=== PATIENT | female | born 1960 | race Two or more races ===

== ENCOUNTER 2024-07-15 13:38 | Inpatient (IN) | payer MEDICARE, SELFPAY ==
[2024-07-15 13:57] VITALS: BP 126/70; PULSE 72; RESP 18; TEMP 36.8; O2SAT 96
[2024-07-15 14:51] VITALS: PULSE 70; RESP 16; O2SAT 96
--- NOTE | 2024-07-15 15:26 | HP.PCM_ITS ---
HPI - General General Date of Admission: 07/15/24 Date of Service: 07/15/24 Chief Complaint: Here for rehabilitation. HPI Narrative MISAEL MUÑOZ, is a 64 Female who presents with following: March 2024 Back surgery. June 2024 Right ankle surgery at [facility]. Rehab at [facility] following right ankle surgery. 07/11/2024 [facility] with abdominal pain, diarrhea. Diarrhea for 1.5 days, fever 100.7, on antibiotics after right ankle surgery. Right ankle pain controlled, low back doing well. status post Keflex, Bactrim after right ankle surgery. CT abdomen/pelvis showed nonspecific inflammation of small bowel. Enteric panel, C. diff, urine cultures, blood cultures. C. diff negative. Enteric panel + Norovirus, stop antibiotics. 07/12/2024 No acute events overnight. Abdominal pain better, diarrhea improving. Imodium PRN. Supportive treatment. 07/14/2024 Pre-CERT for SNF. 07/15/2024 Admit to TCU with debility, here for rehabilitation, strengthening, prior to discharge home alone. [facility] Medical History (Updated 07/15/24 @ 15:[address] Simon Jack MD) BPPV (benign paroxysmal positional vertigo) Essential (primary) hypertension Neuropathic pain Vitamin D deficiency Allergic rhinitis Headache Norovirus Abdominal pain Debility Injury of head and neck History of stress test Anemia Anxiety Depression Diabetes Former smoker Asthma Hypertension Migraines Home Medications ?Medication ?Instructions ?Recorded ?Last Taken ?Type amitriptyline 100 mg tablet 100 mg PO QHS mood 5 07/14/24 History aspirin 81 mg tablet,delayed 81 mg PO BID heart 07/15/24 History release bupropion HCl 300 mg 24 hr tablet, 300 mg PO DAILY moo d 07/15/24 07/15/24 History extended release cholecalciferol (vitamin D3) 50 50 mcg PO DAILY supple ment 07/15/24 Unknown History mcg (2,000 unit) capsule gabapentin 300 mg capsule 300 mg PO BID nerv pain /12/3007/15/24 History lisinopril 2.5 mg tablet 2.5 mg PO DAILY blood pressu re 07/15/24 07/15/24 History metoprolol tartrate 25 mg tablet 12.5 mg PO BID heart 07/15/24 07/15/24 History semaglutide 1 mg/dose (4 mg/3 mL) 1 mg subcut QWEEK we ightloss 07/15/24 Unknown History subcutaneous pen injector (Ozempic) Allergy/AdvReac Type Severity Reaction Status Date / Time eucalyptus Allergy Unknown Shortness Verified 07/15/24 15:06 of breath raspberry Allergy Unknown Other Verified 07/15/24 14:35 amoxicillin (From Augmentin) Allergy severe Verified 07/15/24 14:35 stomach pain clavulanic acid (From Allergy severe Verified 07/15/24 14:35 Augmentin) stomach pain morphine AdvReac Unknown Other Verified 07/15/24 14:35 Family History (Updated 07/15/24 @ 15:[address] Simon Jack MD) Mother Myocardial infarction Cervical cancer Blood clot in vein Father Heart disease Bladder cancer Hx of CABG Neuropathy Uterine cancer Parkinson disease Depression Lymphoma Skin cancer Surgical History (Updated 07/15/24 @ 15:[address] Simon Jack MD) History of esophagogastroduodenoscopy (EGD) History of lumbar laminectomy History of lumbosacral spine surgery History of bilateral cataract extraction History of colonoscopy History of cervical spinal surgery History of ankle surgery History of appendectomy Social History (Updated 07/15/24 @ 15:[address] Simon Jack MD) household members: none and other details: 2 cats. Smoking Status: Former smoker alcohol intake: current alcohol intake frequency: a few times a month substance use type: does not use ROS Constitutional Constitutional: Reports weakness; Denies chills, fever(s) or weight gain ENT HEENT: Denies headache(s), nasal congestion or nasal discharge Cardiovascular Cardiovascular: Denies chest pain or palpitations Respiratory/Chest Respiratory/Chest: Denies cough, excessive phlegm production or shortness of breath with exertion Gastrointestinal Gastrointestinal: Denies abdominal pain, nausea or vomiting Genitourinary Genitourinary: Denies dysuria Musculoskeletal Musculoskeletal: Denies joint pain or joint swelling Integumentary Integumentary: Denies rash or wounds Neurologic Neurologic: Denies focal weakness, numbness or tingling Psychiatric Psychiatric: Denies anxiety, auditory hallucinations, depression, homicidal ideation or suicidal ideation Vital Signs Vital Signs Vital Signs: 07/15/24 13:57 07/15/24 14:25 07/15/24 14:51 Temperature 98.2 F Temperature Source Temporal Pulse Rate 72 70 Pulse Rhythm Regular Pulse Strength Normal (2+) Normal (2+) Respiratory Rate 18 16 Respiratory Effort Normal Non-Labored Respiratory Depth Normal Respiratory Pattern Normal Blood Pressure 126/70 H Blood Pressure Mean 88 Blood Pressure Source Monitor Blood Pressure Position Semi-Fowlers Blood Pressure Location Left Arm Pulse Ox 96 96 Oxygen Delivery Method Room Air Room Air Physical Exam Const alert General Appearance: cooperative HEENT normocephalic Eyes PERRL and EOMs intact bilaterally Neck supple, no JVD and no carotid bruits Resp normal respiratory effort, normal air movement and clear to auscultation bilaterally Cardio regular rate and regular rhythm GI normal to inspection, nondistended, normoactive bowel sounds, non-tender and non-distended Extremity normal capillary refill Extremity Narrative: Right lower extremity MARK. General Extremity: Negative for edema Skin no rashes or lesions noted General Skin Exam: no breakdown Psych affect normal Appearance: appropriate Assessment & Plan Assessment/Plan (1) Debility: (2) Abdominal pain: (3) Norovirus: (4) Headache: (5) Depression: (6) Allergic rhinitis: (7) Vitamin D deficiency: (8) Neuropathic pain: (9) Essential (primary) hypertension: (10) BPPV (benign paroxysmal positional vertigo): (11) Diabetes: PLAN: Plan 64 year old female with below past medical history of recent cervical/lumbar spine surgery, recent right ankle surgery, hospitalized for diarrhea 2/2 norovirus, admitted to TCU with debility, here for rehabilitation, strengthening, prior to discharge home alone. * Debility - PT/OT. * Pain - Tylenol 1000mg q6 prn pain (1-10). * Bowel - senna/colace 1 tablet bid, Magnesium citrate 300mL daily prn. * Adult immunization - Administer pneumonia vaccine, covid vaccine, flu vaccine as appropriate. * DVT prophylaxis - Aspirin 81mg bid. * Headache - Elavil 100mg qhs, stable chronic termite inspector use, GDR not recommended. * Depression - Wellbutrin XL 300mg daily, stable chronic alf use, GDR not recommended. * Vitamin D deficiency - D3 50mcg daily. * Neuropathic pain - Gabapentin 300mg bid. * Hypertension - Metoprolol 12.5mg bid, Lisinopril 2.5mg daily.
[2024-07-15] MEDS: Aspirin E.C. 81 MG Tablet PO (17:25)
[2024-07-15] MEDS: Amitriptyline 100 MG Tablet PO (17:27)
--- NOTE | 2024-07-15 17:33 | NURSING ---
pt had this nurse change time of Elavil to before meals instead of HS per home regimen.
--- NOTE | 2024-07-15 17:37 | NURSING ---
pt requesting that mag citrate be given in morning instead of tonight. will update next shift
[2024-07-15] MEDS: Gabapentin 300 MG Capsule PO (23:10)
[2024-07-15] MEDS: Senna/Docusate Sodium 1 Tablet PO (23:10)
[2024-07-15 23:12] VITALS: BP 144/67; PULSE 78
[2024-07-15] MEDS: Metoprolol Tartrate 25 MG Tablet 12.5 MG PO (23:12)
[2024-07-16] MEDS: 0.9% Saline Lock 10 ML Syringe IV ×3 (06:08→21:52)
[2024-07-16 06:19] LABS: Bedside Glucose 99 mg/dL (74-106)
[2024-07-16 06:45] LABS: Absolute Lymphocyte Count 1.34 X10^3/uL (0.83-4.51); Absolute Neutrophil Count 1.5 X10^3/uL (2.0-7.7); Basophil# 0.01 X10^3/uL; Basophil% 0.3 % (0-1); Eosinophil# 0.08 X10^3/uL; Eosinophils% 2.5 % (0-5); Hematocrit 29.7 % (37-47); Hemoglobin 9.8 g/dL (12.0-15.0); Lymphocyte # 1.34 X10^3/ul (0.83-4.51); Lymphocyte % 42.7 % (19-41); Mean Corpuscular Hgb 29.1 pg (27.0-32.0); Mean Corpuscular Volume 88.1 fL (81-99); Mean Platelet Vol. 8.5 fl (6.2-12.0); Monocyte# 0.22 X10^3/uL; NRBC Flagged by Analyzer 0 % (0-5); Neutrophil # 1.47 X10^3/uL (2.7-7.7); Neutrophil % 46.9 % (47-70); Platelet Count 172 K/mm3 (150-450); RBC Distribution Width CV 12.7 % (11.6-14.6); RBC Distribution Width SD 40.6 fl (35.1-43.9); Red Blood Count 3.37 M/mm3 (4.2-5.4); White Blood Count 3.1 K/mm3 (4.4-11.0)
[2024-07-16 07:22] LABS: Anion Gap 6 (5-15); BUN 7 mg/dL (7-18); BUN/Creat Ratio 9.1 RATIO (10-20); Calcium,Total 8.9 mg/dL (8.5-10.1); Chloride 112 mmol/L (98-107); Creatinine, Serum 0.77 mg/dL (0.55-1.02); EST Glomerular Filtration Rate 80 mL/min (>60); Est Glom Filt Rate - Afr Amer 96 mL/min (>60); Glucose 112 mg/dL (74-106); Potassium 3.6 mmol/L (3.5-5.1); Sodium Level 142 mmol/L (136-145)
[2024-07-16 08:39] VITALS: BMI 44.6
[2024-07-16] MEDS: Gabapentin 300 MG Capsule PO ×2 (09:26→21:52)
[2024-07-16] MEDS: Aspirin E.C. 81 MG Tablet PO ×2 (09:26→16:36)
[2024-07-16] MEDS: Cholecalciferol (VIT D3) 25 MCG TABLET (1,000 UNITS) 50 MCG PO (09:26)
[2024-07-16] MEDS: Magnesium Citrate 300 ML PO (09:27)
[2024-07-16] MEDS: Lisinopril 2.5 MG Tablet PO (09:27)
[2024-07-16] MEDS: buPROPion (XL) 300 MG TABLET.XL PO (09:27)
[2024-07-16] MEDS: Senna/Docusate Sodium 1 Tablet PO ×2 (09:27→21:51)
[2024-07-16 09:29] VITALS: PULSE 75
[2024-07-16] MEDS: Metoprolol Tartrate 25 MG Tablet 12.5 MG PO ×2 (09:29→21:50)
[2024-07-16] MEDS: Tuberculin,Purif.prot.deriv. 50 TU/ML Vial 0.1 ML ID (09:29)
[2024-07-16 12:19] VITALS: BP 131/67; PULSE 75; RESP 12; TEMP 36.6; O2SAT 96
[2024-07-16] MEDS: Amitriptyline 100 MG Tablet PO (16:36)
[2024-07-16 20:00] VITALS: PULSE 74; O2SAT 96
[2024-07-16 21:49] VITALS: BP 129/65; PULSE 75
[2024-07-16 21:50] VITALS: BP 129/65; PULSE 75
--- NOTE | 2024-07-16 23:21 | NURSING ---
All care provided in room due to contact isolation precautions.
[2024-07-17 06:27] LABS: Bedside Glucose 124 mg/dL (74-106)
[2024-07-17 09:24] VITALS: PULSE 68
[2024-07-17] MEDS: Metoprolol Tartrate 25 MG Tablet 12.5 MG PO ×2 (09:24→20:16)
[2024-07-17] MEDS: Senna/Docusate Sodium 1 Tablet PO ×2 (09:24→20:16)
[2024-07-17] MEDS: Gabapentin 300 MG Capsule PO ×2 (09:24→20:18)
[2024-07-17] MEDS: buPROPion (XL) 300 MG TABLET.XL PO (09:24)
[2024-07-17] MEDS: Lisinopril 2.5 MG Tablet PO (09:24)
[2024-07-17] MEDS: Cholecalciferol (VIT D3) 25 MCG TABLET (1,000 UNITS) 50 MCG PO (09:25)
[2024-07-17] MEDS: Aspirin E.C. 81 MG Tablet PO ×2 (09:25→17:46)
[2024-07-17] MEDS: 0.9% Saline Lock 10 ML Syringe IV (09:25)
[2024-07-17 09:40] VITALS: BP 134/60; PULSE 79; RESP 16; TEMP 36.2; O2SAT 96
--- NOTE | 2024-07-17 14:26 | NURSING ---
pt remains in special contact precautions for all care/treatments/therapy
[2024-07-17 16:34] VITALS: RESP 16
[2024-07-17] MEDS: Amitriptyline 100 MG Tablet PO (17:46)
[2024-07-17 20:16] VITALS: BP 128/68; PULSE 79
[2024-07-18 06:14] LABS: Bedside Glucose 116 mg/dL (74-106)
[2024-07-18] MEDS: Aspirin E.C. 81 MG Tablet PO ×2 (08:14→17:14)
[2024-07-18] MEDS: Cholecalciferol (VIT D3) 25 MCG TABLET (1,000 UNITS) 50 MCG PO (08:14)
[2024-07-18] MEDS: Gabapentin 300 MG Capsule PO ×2 (08:14→21:01)
[2024-07-18] MEDS: buPROPion (XL) 300 MG TABLET.XL PO (08:14)
[2024-07-18] MEDS: 0.9% Saline Lock 10 ML Syringe IV (08:16)
--- NOTE | 2024-07-18 08:58 | NURSING ---
Offered covid vaccine, VIS provided. Resident declines at this time.
--- NOTE | 2024-07-18 10:17 | NURSING ---
Addendum entered by Melanie Chery 07/18/24 14:31: Spoke with therapy after their session. They made resident a gypsy lift for transfers and [facility]. Updated resident and let her know this RN would set it up for her. [phone]. Form faxed to physicians. Original Note: Discussed ortho follow-up appt with resident scheduled for 07/20/24. She became upset and tearful when discussed that WC transport cost would have to be covered by her. She said she'd been told the facility would get me to my appt. She reports that she doesn't have anyone to transport her, and all her friends have large SUVs. Provided supportive listening. Offered to see if physician would be wiling to do televisit and let xrays be done here. She became tearful again and said she needs to see her surgeon in person. Gave her the number to [facility] and told her this RN would discuss with therapy to see what they recommend after working with her. Asked if there was anything else this RN could do. She asked for a notepad which RN provided for her. She was in agreement with plan, thanked RN and said she was going to reach out to [facility] at this time.
[2024-07-18 11:07] VITALS: BP 118/65; PULSE 73; RESP 16; TEMP 36.2; O2SAT 95
--- NOTE | 2024-07-18 11:08 | NURSING ---
Patients blood pressure reading this morning noted, 118/65. Patient refused Lisinopril and Metoprolol. Stated she did not want her BP to drop any lower. Also refused Senna.
--- NOTE | 2024-07-18 11:36 | NURSING ---
Planning Rn Note; Activity Asset: Sylvie Ramires is independent in her choice of daily activities. She was admitted on isolation and will do independent activities in her room at this time. She has her smartphone, tablet and will watch tv or read as well. When off isolation staff will encourage social activities, remind her of group activities and respect her right to say no.
--- NOTE | 2024-07-18 11:45 | CASEMGMT ---
Social Work SW met with patient to complete initial assessment. Introduced self and role. SW obtained contacts and updated in chart. Pt stated her friend Aura Sexton is HCPOA but unable to provide copies of advanced directives. SW confirmed code status as full code. SW educated to [facility] insurance with NRD 07/21 and continued stay is not guaranteed with each review. Pt anxious with this information. Pt is NWB for 6 weeks. See SW assessment for barriers. SW provided active listening and offered ongoing support throughout stay. SW to assist with DC planning. Vicky Levy GREEN HOUSE MANAGER RETAIL FINANCIAL ANALYST
--- NOTE | 2024-07-18 14:06 | PCM.PN.DRR ---
Documented by User: Manjula Lopes 07/18/24 14:18 TCU RX Drug Regimen Review Subjective/Objective Subjective/Objective Subjective: TCU Admission. 64 YOF presented to outside ER from facility with abdominal pain and diarrhea, recent cervical/lumbar spine surgery, recent right ankle surgery. Hospitalized for diarrhea 2/2 norovirus. Admitted to TCU with debility for strengthening and rehabilitation. Objective: Allergies eucalyptus Allergy (Unknown, Verified 07/15/24 15:06) Shortness of breath eucalyptus oil raspberry Allergy (Unknown, Verified 07/15/24 14:35) Other ashtma amoxicillin (From Augmentin) Allergy (Verified 07/15/24 14:35) severe stomach pain clavulanic acid (From Augmentin) Allergy (Verified 07/15/24 14:35) severe stomach pain morphine Adverse Reaction (Unknown, Verified 07/15/24 14:35) Other doesn't work Current Medications Generic Name Dose Route Start Last Admin Trade Name Freq PRN Reason Stop Dose Admin Acetaminophen 1,000 mg 07/15/24 15:49 Acetaminophen 500 Mg Tablet PO Q6H PRN PRN Pain Score 1-10 Amitriptyline HCl 100 mg 07/16/24 17:00 07/17/24 17:46 Amitriptyline 100 Mg Tablet PO 100 mg 1700 DALLIN Administration Aspirin 81 mg 07/15/24 17:00 07/18/24 08:14 Aspirin E.C. 81 Mg Tablet PO 81 mg BIDCM DALLIN Administration Bupropion HCl 300 mg 07/16/24 10:00 07/18/24 08:14 Bupropion (Xl) 300 Mg Tablet.Xl PO 300 mg DAILY DALLIN Administration Cholecalciferol 50 mcg 07/16/24 08:00 07/18/24 08:14 Cholecalciferol (Vit D3) 25 Mcg Tablet (1,000 Units) PO 50 mcg DAILYCM DALLIN Administration Gabapentin 300 mg 07/15/24 22:00 07/18/24 08:14 Gabapentin 300 Mg Capsule PO 300 mg BID DALLIN Administration Lisinopril 2.5 mg 07/16/24 10:00 07/18/24 08:15 Lisinopril 2.5 Mg Tablet PO Not Given DAILY DALLIN Protocol Magnesium Citrate 300 ml 07/15/24 15:49 Magnesium Citrate 300 Ml PO DAILY PRN Constipation Metoprolol Tartrate 12.5 mg 07/15/24 22:00 07/18/24 08:14 Metoprolol Tartrate 25 Mg Tablet PO Not Given BID [facility] Protocol Senna/Docusate Sodium 1 tablet 07/15/24 22:00 07/18/24 08:15 Senna/Docusate Sodium 1 Tablet PO Not Given BID [facility] Sodium Chloride 10 - 40 ml 07/15/24 14:16 07/18/24 08:16 0.9% Saline Lock 10 Ml Syringe IV 10 ml UD PRN Administration SALINE FLUSH Tuberculin PPD 0.1 ml 07/23/24 10:00 Tuberculin,Purif.Prot.Deriv. 50 Tu/Ml Vial ID 07/23/24 10:01 X1 ONE Problem List Diabetes (Acute) BPPV (benign paroxysmal positional vertigo) (Acute) Essential (primary) hypertension (Acute) Neuropathic pain (Acute) Vitamin D deficiency (Acute) Allergic rhinitis (Acute) Depression (Acute) Headache (Acute) Norovirus (Acute) Abdominal pain (Acute) Debility (Acute) Vital Signs Temp Pulse Resp BP Pulse Ox O2 Del Method 97.2 F L 73 16 118/65 95 Room Air 07/18/24 11:07 07/18/24 11:07 07/18/24 11:07 07/18/24 11:07 07/18/24 11:07 07/18/24 11:07 Oxygen Delivery Method Room Air Weight: 110.132 kg Body Mass Index (BMI) 44.6 Sodium 142 mmol/L (136-145) 07/16/24 06:21 Potassium 3.6 mmol/L (3.5-5.1) 07/16/24 06:21 Chloride 112 mmol/L (98-107) H 07/16/24 06:21 Carbon Dioxide 25.0 mmol/L (21.0-32.0) 07/16/24 06:21 Anion Gap 6 (5-15) 07/16/24 06:21 BUN 7 mg/dL (7-18) 07/16/24 06:21 Creatinine 0.77 mg/dL (0.55-1.02) 07/16/24 06:21 Est GFR (MDRD) Af Amer 96 mL/min (>60) 07/16/24 06:21 Est GFR (MDRD) Non-Af 80 mL/min (>60) 07/16/24 06:21 BUN/Creatinine Ratio 9.1 RATIO (10-20) L 07/16/24 06:21 Glucose 112 mg/dL (74-106) H 07/16/24 06:21 Assessment/Plan: 1. Pain: acetaminophen 1000mg PO Q6H PRN pain 1-10. No PRN doses given. Please continue to monitor for pain and PRN usage. 2. Bowel: senna/docusate 1T PO BID and magnesium citrate 300mL PO daily PRN constipation. Resident has had 1 dose of magnesium citrate. Last documented bowel movement was 07/17. Please continue to monitor for PRN usage and constipation. 3. DVT prophylaxis: aspirin 81mg PO BIDCM. Please consider adding a stop date if clinically appropriate. Thanks. Please continue to monitor for S/S of bleeding/DVT and hemoglobin (last 9.8g/dL). 4. Hypertension: metoprolol tartrate 12.5mg PO BID and lisinopril 2.5mg PO daily. Please continue to monitor BP (last 118/65), HR (last 73), potassium (last 3.6mmol/L), SCr, cough. 5. Vitamin D deficiency: cholecalciferol 50mcg PO daily. Please consider ordering a vitamin D level as there is no level in the chart. Thanks. Assessment/Plan for indications treated with psychotropic medications: 1. Headache: amitriptyline 100mg PO QHS. Please see physician note regarding GDR. Please continue to monitor for headaches, anticholinergic side effects (BEERs), dementia/delirium (BEERs) and sodium (last 142mmol/L). 2. Depression: bupropion XL 300mf PO daily. Please see physician note regarding GDR. Please continue to monitor for suicidal ideation (black box warning). 3. Neuropathic pain: gabapentin 300mg PO BID. GDR not appropriate as this medication is being used for neuropathy. Please continue to monitor renal function, confusion. Medical chart and medication regimen reviewed. The following medication irregularities or issues were identified: 1. Aspirin 81mg PO BIDCM. Please consider adding a stop date if clinically appropriate. Thanks. 2. Cholecalciferol 50mcg PO daily. Please consider ordering a vitamin D level as there is no level in the chart. Thanks. Date Date of Note: 07/18/24 Documented by User: Dr. Simon Jack MD 07/18/24 15:54 TCU RX Drug Regimen Review Provider Comments Provider responsibility Provider Comments to Recommendations by Pharmacy Agree
[2024-07-18] MEDS: Amitriptyline 100 MG Tablet PO (17:14)
[2024-07-18] MEDS: Senna/Docusate Sodium 1 Tablet PO (21:01)
[2024-07-18 21:02] VITALS: BP 144/72; PULSE 81
[2024-07-18] MEDS: Metoprolol Tartrate 25 MG Tablet 12.5 MG PO (21:02)
[2024-07-18 22:00] VITALS: RESP 16
[2024-07-19 04:19] VITALS: PULSE 67; RESP 18; O2SAT 95
[2024-07-19 06:30] LABS: Bedside Glucose 127 mg/dL (74-106)
[2024-07-19] MEDS: Acetaminophen 500 MG Tablet 1000 MG PO (08:02)
[2024-07-19] MEDS: Cholecalciferol (VIT D3) 25 MCG TABLET (1,000 UNITS) 50 MCG PO (08:05)
[2024-07-19] MEDS: Aspirin E.C. 81 MG Tablet PO ×2 (08:05→17:21)
[2024-07-19 08:06] VITALS: BP 151/73; PULSE 77
[2024-07-19] MEDS: Metoprolol Tartrate 25 MG Tablet 12.5 MG PO (08:06)
[2024-07-19] MEDS: buPROPion (XL) 300 MG TABLET.XL PO (08:07)
[2024-07-19] MEDS: Senna/Docusate Sodium 1 Tablet PO ×2 (08:07→21:27)
[2024-07-19] MEDS: Lisinopril 2.5 MG Tablet PO (08:07)
[2024-07-19 08:11] VITALS: BP 151/73; PULSE 77; RESP 18; O2SAT 95
[2024-07-19] MEDS: Gabapentin 300 MG Capsule PO ×2 (10:47→21:27)
[2024-07-19 15:54] VITALS: TEMP 36.4
--- NOTE | 2024-07-19 15:57 | CHAPLAIN ---
Type of Pastoral Visit _x__ Initial Visit ___ Follow-up Visit ___ On-call Visit ___ General Patient Visit ___ Spiritual Assessment ___ Family Conference ___ Bereavement ___ Rapid Response ___ Code Blue ___ Other (describe below) Pastoral Care Referral From _x__ Patient ___ Family ___ Nurse ___ Physician ___ Match Marker ___ Fire Supervisor ___ Other (describe below) Sacrament/Intervention _x__ Active listening ___ Anointing ___ Taoism ___ Bereavement ___ Communion _x__ Kelley exploration ___ ___ Life review _x__ Prayer ___ Reconciliation ___ Sacrament of Sick ___ Supportive presence ___ Wedding ___ Other (describe below) Pastoral Comments patient is welcoming and tells her story of physical, family, and spiritual life; pt has ideas about spirituality and shares some thoughts and stories; pt is thankful to be in TCU after after experience in another facility; pt welcomes a prayer
--- NOTE | 2024-07-19 16:05 | NURSING ---
UPDATED PT THAT A STAFF MEMBER TESTED POSITIVE FOR COVID. PT STATED THERE WAS KNOW ONE SHE WANTED THIS NURSE TO CALL.
[2024-07-19] MEDS: Amitriptyline 100 MG Tablet PO (17:21)
[2024-07-19] MEDS: MELATONIN 10 MG TABLET PO (21:27)
[2024-07-19 21:28] VITALS: BP 117/51; PULSE 73
[2024-07-20 07:03] LABS: Bedside Glucose 114 mg/dL (74-106)
[2024-07-20 08:22] VITALS: BP 128/65; PULSE 85
[2024-07-20] MEDS: Metoprolol Tartrate 25 MG Tablet 12.5 MG PO ×2 (08:22→22:15)
[2024-07-20] MEDS: Cholecalciferol (VIT D3) 25 MCG TABLET (1,000 UNITS) 50 MCG PO (08:22)
[2024-07-20] MEDS: Aspirin E.C. 81 MG Tablet PO ×2 (08:22→16:17)
[2024-07-20] MEDS: buPROPion (XL) 300 MG TABLET.XL PO (08:23)
[2024-07-20] MEDS: Senna/Docusate Sodium 1 Tablet PO ×2 (08:23→22:15)
[2024-07-20] MEDS: Lisinopril 2.5 MG Tablet PO (08:24)
[2024-07-20] MEDS: Gabapentin 300 MG Capsule PO ×2 (08:27→22:15)
[2024-07-20] MEDS: Acetaminophen 500 MG Tablet 1000 MG PO (08:27)
[2024-07-20 08:32] VITALS: BP 128/65; PULSE 85; RESP 18; O2SAT 96
--- NOTE | 2024-07-20 08:33 | NURSING ---
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 WILL LEAVE NOT FOR . ALSO PT STATED SHE IS ALLERGIC TO RASPBERRIES AND THERE WERE SOME IN HER FRUIT CUP AT BREAKFAST. PT IS OK,NO SYSTEMS OF REACTION AT THIS TIME WILL CONTINUE TO MONITOR. RN AND DIETARY NOTIFIED.
--- NOTE | 2024-07-20 10:06 | NURSING ---
Addendum entered by Melanie Chery 07/20/24 12:31: Resident returned from appt at 1215. Note from appt says sutures were removed, operative leg able to be washed with soap and water. She can remove cast when at rest, but should have on for any transfers. To remain NWB to right foot. Next f/u appt on 08/03/24. Original Note: PT LEFT BY COT AT 0945 FOR APPOINTMENT IN [place].
--- NOTE | 2024-07-20 13:17 | CASEMGMT ---
Social Work IDT met with patient and her friend via conference for care plan meeting. Discussed patient's progress in PT/OT/SN. Educated to [facility] insurance with NRD 07/21 and continued stay is not guaranteed with each review. Pt returned from appt - stitches removed, remains NWB, f/u in 2 weeks for additional xrays. SW cautioned insurance may not continue to cover with NWBS. Inquired about the DC plan as pt is a gypsy lift. IDT is recommending SNF. Pt is adamant about returning home as she has not been home for several weeks. SW inquired if there were family or friends that could be available to assist pt at home. Pt expressed she can have people check in but everyone works full-time. Therapy will continue working with pt. SW will continue to follow for DC planning. Vicky Levy PRODUCTION ROUSTABOUT COMPUTER INFORMATION SYSTEMS INSTRUCTOR
--- NOTE | 2024-07-20 15:15 | NURSING ---
PT IS REFUSING TO LET STAFF GET HER WEIGHT. EDUCATED PT,PT STATED ITS MY RIGHT AND I DONT WANT WEIGHTED. STATED TO PT THAT IT IS AND IF SHE CHANGES HER MIND TO LET STAFF KNOW. PT STATED OK.
[2024-07-20 16:00] VITALS: TEMP 36.4
[2024-07-20] MEDS: Amitriptyline 100 MG Tablet PO (16:17)
--- NOTE | 2024-07-20 16:31 | NURSING ---
PT HAS NOT HAD A BM IN 3 DAYS. OFFERED PRUNE JUICE OR PRN MAG CITRATE. PT REFUSED AND STATED LETS WAIT TILL TOMORROW..
[2024-07-20] MEDS: Doxycycline 100 MG CAPSULE PO (17:25)
[2024-07-20 22:12] VITALS: BP 140/84; PULSE 75
[2024-07-20 22:15] VITALS: BP 140/84; PULSE 75
[2024-07-20] MEDS: MELATONIN 10 MG TABLET PO (22:15)
[2024-07-21 06:17] LABS: Bedside Glucose 106 mg/dL (74-106)
[2024-07-21 08:37] VITALS: BP 129/59; PULSE 80
[2024-07-21] MEDS: Cholecalciferol (VIT D3) 25 MCG TABLET (1,000 UNITS) 50 MCG PO (08:37)
[2024-07-21] MEDS: Metoprolol Tartrate 25 MG Tablet 12.5 MG PO ×2 (08:37→22:50)
[2024-07-21] MEDS: Aspirin E.C. 81 MG Tablet PO ×2 (08:37→17:20)
[2024-07-21] MEDS: Doxycycline 100 MG CAPSULE PO (08:37)
[2024-07-21] MEDS: buPROPion (XL) 300 MG TABLET.XL PO (08:39)
[2024-07-21] MEDS: Senna/Docusate Sodium 1 Tablet PO ×2 (08:39→22:50)
[2024-07-21] MEDS: Lisinopril 2.5 MG Tablet PO (08:40)
[2024-07-21] MEDS: Gabapentin 300 MG Capsule PO ×2 (08:52→22:50)
[2024-07-21] MEDS: Acetaminophen 500 MG Tablet 1000 MG PO (08:52)
[2024-07-21 08:56] VITALS: BP 129/59; PULSE 80; RESP 18; O2SAT 97
--- NOTE | 2024-07-21 11:13 | NURSING ---
PT STILL REFUSING MAG CITRATE. NO BM IN 4 DAYS. PT STATED I WILL TAKE IT TOMORROW MORNING,SOME TIMES I DONT GO FOR A WEEK AND THATS NORMAL FOR ME. WILL LET NEXT SHIFT KNOW.
--- NOTE | 2024-07-21 13:42 | MDS.RN ---
MDS pain interview complete.
[2024-07-21] MEDS: CARBOXYMETHYLCELLULOSE SODIUM 1 DRP DROPS 2 DRP OPHTHALMIC ×2 (14:58→15:00)
--- NOTE | 2024-07-21 15:57 | CASEMGMT ---
Social Work SW updated pt that insurance approved with NRD 07/27 and needs to see improvement or a NOMNC will be issued. Pt expressed understanding. Vicky Levy DEFENSIVE DRIVING INSTRUCTOR AIRFREIGHT OPERATIONS AGENT
[2024-07-21 16:00] VITALS: TEMP 36.8
[2024-07-21] MEDS: Amitriptyline 100 MG Tablet PO (17:20)
[2024-07-21 22:50] VITALS: BP 122/61; PULSE 78
[2024-07-21] MEDS: MELATONIN 10 MG TABLET PO (22:50)
[2024-07-22 06:12] LABS: Bedside Glucose 94 mg/dL (74-106)
[2024-07-22 07:03] LABS: Absolute Lymphocyte Count 1.49 X10^3/uL (0.83-4.51); Absolute Neutrophil Count 2.1 X10^3/uL (2.0-7.7); Basophil# 0.02 X10^3/uL; Basophil% 0.5 % (0-1); Eosinophil# 0.08 X10^3/uL; Hematocrit 32.8 % (37-47); Hemoglobin 10.9 g/dL (12.0-15.0); Lymphocyte # 1.49 X10^3/ul (0.83-4.51); Lymphocyte % 37.2 % (19-41); Mean Corp Hgb Conc 33.2 g/dL (32-36); Mean Corpuscular Hgb 29.5 pg (27.0-32.0); Mean Corpuscular Volume 88.9 fL (81-99); Mean Platelet Vol. 8.4 fl (6.2-12.0); Monocyte% 7.5 % (0-10); NRBC Flagged by Analyzer 0 % (0-5); Neutrophil # 2.11 X10^3/uL (2.7-7.7); Neutrophil % 52.6 % (47-70); Platelet Count 154 K/mm3 (150-450); RBC Distribution Width SD 42.5 fl (35.1-43.9); Red Blood Count 3.69 M/mm3 (4.2-5.4)
[2024-07-22 07:38] LABS: Anion Gap 5 (5-15); BUN 16 mg/dL (7-18); BUN/Creat Ratio 16.2 RATIO (10-20); Calcium,Total 9.6 mg/dL (8.5-10.1); Chloride 108 mmol/L (98-107); Creatinine, Serum 0.99 mg/dL (0.55-1.02); EST Glomerular Filtration Rate 60 mL/min (>60); Est Glom Filt Rate - Afr Amer 72 mL/min (>60); Estimated Creatinine Clearance 62.58 ml/min; Glucose 108 mg/dL (74-106); Potassium 4.2 mmol/L (3.5-5.1); Sodium Level 139 mmol/L (136-145)
[2024-07-22] MEDS: Senna/Docusate Sodium 1 Tablet PO ×2 (08:37→22:31)
[2024-07-22] MEDS: Aspirin E.C. 81 MG Tablet PO ×2 (08:38→16:54)
[2024-07-22] MEDS: Doxycycline 100 MG CAPSULE PO (08:38)
[2024-07-22] MEDS: Gabapentin 300 MG Capsule PO ×2 (08:38→22:34)
[2024-07-22] MEDS: buPROPion (XL) 300 MG TABLET.XL PO (08:38)
[2024-07-22] MEDS: Cholecalciferol (VIT D3) 25 MCG TABLET (1,000 UNITS) 50 MCG PO (08:38)
[2024-07-22 09:00] VITALS: BP 113/65; PULSE 70; RESP 16; TEMP 36.8; O2SAT 95
--- NOTE | 2024-07-22 09:01 | NURSING ---
Dining Car Hop Note; MDS for 07/22/2024 Complete
--- NOTE | 2024-07-22 16:02 | CASEMGMT ---
Social Work SW completed BIMS () and PHQ-9 (04/03) for MDS assessment. SW provided ongoing supportive listening and emotional support. Pt shared several stories relating to her personal life, explaining positive responses. SW answered yes to having thoughts of being better off , but no to thoughts of hurting yourself in some way. SW explored answer further. Pt explained she has no wishes to harm herself, specifically stating killing yourself is weak. Pt has not had past or present intent/attempts/plans/thoughts of suicide. Pt shared she has thoughts of being better off citing when things get hard and is done. SW explored pt's interpretation of done. Pt reiterated no thoughts of suicide, but being done with the conversation, with confronting the situation or act, and taking time to step away from that moment to express her feelings. SW explored coping mechanisms. Pt shared she emotionally eats or shops. Pt identified those as maladaptive coping mechanisms. Pt has chronic depression and has been active with counselors prior. Pt last saw her counselor in the beginning of June, attended about 5 sessions, however, expressed not connecting with the counselor or getting the feedback she prefers. SW discussed switching providers. Pt agreeable. SW to provide list of resources in pt's area and assist with scheduling, if pt wishes. SW revisited the benefit of finding a new counselor to assist in learning positive coping skills and mechanisms. Pt agrees and has awareness. SW offered ongoing supportive visits throughout stay. Vicky Levy REPAIR COIL WINDER TRACK BROOM OPERATOR
[2024-07-22] MEDS: Amitriptyline 100 MG Tablet PO (16:54)
[2024-07-22] MEDS: CARBOXYMETHYLCELLULOSE SODIUM 1 DRP DROPS 2 DRP OPHTHALMIC ×2 (16:54→22:32)
[2024-07-22 20:00] VITALS: PULSE 86; O2SAT 95
[2024-07-22 22:27] VITALS: BP 141/62; PULSE 85
[2024-07-22] MEDS: MELATONIN 10 MG TABLET PO (22:29)
[2024-07-22 22:30] VITALS: BP 141/62; PULSE 85
[2024-07-22] MEDS: Metoprolol Tartrate 25 MG Tablet 12.5 MG PO (22:30)
[2024-07-23 02:47] VITALS: PULSE 70; O2SAT 94
[2024-07-23 06:14] LABS: Bedside Glucose 110 mg/dL (74-106)
[2024-07-23 08:26] VITALS: BP 117/68; PULSE 89; RESP 18; TEMP 36.9; O2SAT 96
[2024-07-23] MEDS: Senna/Docusate Sodium 1 Tablet PO ×2 (09:44→22:24)
[2024-07-23] MEDS: CARBOXYMETHYLCELLULOSE SODIUM 1 DRP DROPS 2 DRP OPHTHALMIC (09:44)
[2024-07-23] MEDS: buPROPion (XL) 300 MG TABLET.XL PO (09:44)
[2024-07-23] MEDS: Aspirin E.C. 81 MG Tablet PO ×2 (09:44→17:29)
[2024-07-23] MEDS: Gabapentin 300 MG Capsule PO ×2 (09:44→22:22)
[2024-07-23] MEDS: Cholecalciferol (VIT D3) 25 MCG TABLET (1,000 UNITS) 50 MCG PO (09:46)
[2024-07-23] MEDS: Doxycycline 100 MG CAPSULE PO (09:46)
[2024-07-23] MEDS: Tuberculin,Purif.prot.deriv. 50 TU/ML Vial 0.1 ML ID (09:50)
[2024-07-23 16:00] VITALS: RESP 18
[2024-07-23] MEDS: Amitriptyline 100 MG Tablet PO (17:29)
[2024-07-23 22:21] VITALS: BP 127/64; PULSE 80
[2024-07-23] MEDS: MELATONIN 10 MG TABLET PO (22:23)
[2024-07-23 22:24] VITALS: PULSE 80
[2024-07-23] MEDS: Metoprolol Tartrate 25 MG Tablet 12.5 MG PO (22:24)
[2024-07-24 06:20] LABS: Bedside Glucose 113 mg/dL (74-106)
[2024-07-24] MEDS: Aspirin E.C. 81 MG Tablet PO ×2 (08:45→17:47)
[2024-07-24] MEDS: Cholecalciferol (VIT D3) 25 MCG TABLET (1,000 UNITS) 50 MCG PO (08:45)
[2024-07-24] MEDS: Gabapentin 300 MG Capsule PO ×2 (08:46→20:27)
[2024-07-24] MEDS: Doxycycline 100 MG CAPSULE PO (08:46)
[2024-07-24] MEDS: buPROPion (XL) 300 MG TABLET.XL PO (08:47)
[2024-07-24 08:52] VITALS: BP 120/62; PULSE 79
[2024-07-24] MEDS: Metoprolol Tartrate 25 MG Tablet 12.5 MG PO ×2 (08:52→20:27)
[2024-07-24] MEDS: Lisinopril 2.5 MG Tablet PO (08:54)
[2024-07-24 16:58] VITALS: BP 120/62; PULSE 79; RESP 16; TEMP 37.3; O2SAT 96
[2024-07-24] MEDS: Amitriptyline 100 MG Tablet PO (17:46)
[2024-07-24 20:27] VITALS: BP 135/67; PULSE 99
[2024-07-24] MEDS: Senna/Docusate Sodium 1 Tablet PO (20:27)
[2024-07-24] MEDS: MELATONIN 10 MG TABLET PO (20:28)
[2024-07-25 06:30] LABS: Bedside Glucose 112 mg/dL (74-106)
[2024-07-25] MEDS: Cholecalciferol (VIT D3) 25 MCG TABLET (1,000 UNITS) 50 MCG PO (09:18)
[2024-07-25] MEDS: Aspirin E.C. 81 MG Tablet PO ×2 (09:18→18:00)
[2024-07-25] MEDS: Doxycycline 100 MG CAPSULE PO (09:19)
[2024-07-25] MEDS: Gabapentin 300 MG Capsule PO ×2 (09:19→23:11)
[2024-07-25] MEDS: Lisinopril 2.5 MG Tablet PO (09:20)
[2024-07-25] MEDS: buPROPion (XL) 300 MG TABLET.XL PO (09:20)
[2024-07-25 09:21] VITALS: BP 116/63; PULSE 81
[2024-07-25] MEDS: Metoprolol Tartrate 25 MG Tablet 12.5 MG PO ×2 (09:21→23:12)
[2024-07-25 16:00] VITALS: BP 120/68; PULSE 73; RESP 18; TEMP 36.6; O2SAT 97
--- NOTE | 2024-07-25 16:46 | CASEMGMT ---
Social Work Pt requested to speak with this worker. SW met with patient at bedside. Pt expressed her readiness to go home. SW clarified if this was her mental or physical readiness to go home. Pt admitted mentally she is ready, but not sure about physically. Pt shared her frustrations with a bathroom incident this morning that sent her over the edge with wanting to DC. SW actively listened and empathized. Assisted in problem solving for future prevention. Pt stated she is using the bed phillips, per her preference and for safety and her left knee kalee without warning and she can fall. SW challenged pt with homegoing - who would be assisting her with the bed phillips at home or catching her if her knee kalee, etc. Pt expressed understanding as she would be home alone with no support. Pt refuted that she would not be using the bed phillips at home; she has an elevated toilet seat and she could do a SPT. SW offered to practice that during stay to help lessen the gap of homegoing. Pt agreed. Pt already was seen by therapy this date. SW to notify therapy for their input at tomorrow's session, and have staff provide pt with an elevated toilet seat in pt's bathroom. Pt agreed. Pt exhibiting anxious body language, expressing her desire to be at home given the time she has been in a hospital. SW acknowledged, validated feelings and empathized with feelings. SW offered the safety perspective of discharging home too soon and without help considering pt's current level of functioning. SW offered if pt could hire aides to assist her. Pt first stated she has her f/u appt on 08/03, per the Dr, she will be getting xrays and increased WBS, which the pt is hopeful she can function more independently. SW affirmed pt's perspective. Pt then answered question about aides, stating I could but I got myself in a bit of a financial pit. SW referenced pt's shopping to cope with stress. Pt confirmed and stated, given my stressful morning today, that didn't help. Pt continued acknowledging needing improvement and better coping mechanisms, with the plan of not spending more money until October when her debt is paid off. SW praised pt for recognition and motivation to change, with an attainable goal, and promoted self discipline. Pt stated, part of me is hoping the insurance company doesn't give me more time so I can go home. SW acknowledged and offered to allow the insurance to make the decision since IDT is recommending continued stay. Pt agrees and replies, just know if they give me more time, I am going to cry. I will stay, but I'm going to cry. SW offered to be with pt while she cries, if needed. Pt appreciative of support. SW will continue to follow. Vicky Levy GLOBAL REGULATORY AFFAIRS MANAGER STEM CRUSHER
[2024-07-25] MEDS: Amitriptyline 100 MG Tablet PO (18:00)
[2024-07-25 23:06] VITALS: BP 113/62; PULSE 73
[2024-07-25 23:12] VITALS: BP 113/62; PULSE 73
[2024-07-25] MEDS: Senna/Docusate Sodium 1 Tablet PO (23:12)
[2024-07-25] MEDS: MELATONIN 10 MG TABLET PO (23:12)
[2024-07-26 06:44] LABS: Bedside Glucose 115 mg/dL (74-106)
--- NOTE | 2024-07-26 08:51 | MDS.RN ---
Information for the MDS was obtained from review of the clinical record, interview of resident, staff, and direct observation of resident?s care.
--- NOTE | 2024-07-26 08:51 | NURSING ---
0815- Asked resident about issues with bedpan yesterday, let her know this RN wants to pass along concern and make sure staff were taking care of her needs in a timely manner. She reports that she put her call kern on and it was answered, then the light went off but no one ever came. She reports calling again around 20 minutes later, stating she waited a while because she knows the staff is busy. But after calling again she said again her light was turned off and no on ever showed up to assist her. She reports it was then over an hour since she'd initially called, and the nurse came in to check on her. She said the nurse was very kind and helpful, hadn't realized she'd been calling out. She re-iterated she knows staff is busy. RN explained that staff should have left her call light flashing so they could see that she still needed assistance. Apologized for the long wait and let her know this RN would pass concern along to staff. Resident was very calm during discussion, expressed appreciation that nurse discussed with her. She also reported overall everyone has been nice. She denies any other questions or concerns. Left her in bed eating breakfast, call kern in reach.
[2024-07-26] MEDS: Doxycycline 100 MG CAPSULE PO (09:04)
[2024-07-26] MEDS: Aspirin E.C. 81 MG Tablet PO ×2 (09:04→17:25)
[2024-07-26] MEDS: Cholecalciferol (VIT D3) 25 MCG TABLET (1,000 UNITS) 50 MCG PO (09:04)
[2024-07-26] MEDS: buPROPion (XL) 300 MG TABLET.XL PO (09:05)
[2024-07-26] MEDS: Lisinopril 2.5 MG Tablet PO (09:05)
[2024-07-26 09:06] VITALS: BP 130/64; PULSE 76
[2024-07-26] MEDS: Senna/Docusate Sodium 1 Tablet PO ×2 (09:06→23:12)
[2024-07-26] MEDS: Metoprolol Tartrate 25 MG Tablet 12.5 MG PO ×2 (09:06→23:13)
[2024-07-26] MEDS: CARBOXYMETHYLCELLULOSE SODIUM 1 DRP DROPS 2 DRP OPHTHALMIC ×2 (09:07→23:12)
[2024-07-26] MEDS: Gabapentin 300 MG Capsule PO ×2 (09:10→23:13)
[2024-07-26 09:13] VITALS: BP 130/64; PULSE 76; RESP 18; O2SAT 96
--- NOTE | 2024-07-26 11:07 | CASEMGMT ---
Social Work Pt presented to this worker's office visibly upset, requesting to meet with this worker. SW agreed to speak with pt after this worker complete current emergent task. Pt stated, that's fine, I will just wait outside your door until you're ready. After this worker completed task, SW invited pt into this worker's office for discussion. Provided active listening while pt expressed feelings and account of situation with SQL DEVELOPER and HEAVY EQUIPMENT DIESEL MECHANIC. In summary, pt expressed feelings of humiliation and frustration with SQL DEVELOPER's interaction while pt was on the bed phillips. Pt did express appreciation for HEAVY EQUIPMENT DIESEL MECHANIC's compassion after SQL DEVELOPER exited room and assisting pt with personal care. Pt stated she did report encounter to Charge Nurse and C. Nurse did offer for SQL DEVELOPER to no longer care for her, but pt denied. However, after further discussion with this worker, and given pt felt this was not an isolated incident from prior shifts SQL DEVELOPER was caring for pt, pt prefers to have another nurse providing care for her. SW accepted and to notify C. Nurse for a change in assignment. Pt continued expressing desire to go home and having her mental health suffer being in the hospital. SW empathized with situation. Reiterated recommendation for care at home or discharging to a SNF, however, pt is adamant about discharging home and that there is no one to assist her. Pt stated, I'm going to do things my way at home that likely isn't PT approved. SW acknowledged, but emphasized pt's safety and well-being. Pt understood, but remains persistent on discharging home. SW offered for pt to secure transport home or this worker offered to coordinate transport home, and to coordinate around that schedule for setting DC date. Pt prefers DC 07/29, pending transportation. SW accepted and will await pt's outcome. -- FAST FOOD ASSISTANT RESTAURANT MANAGER/NOLAN not recommending a car transfer but a w/c transport. SW to speak with pt. Vicky Levy MSW BUFFING AND POLISHING WHEEL REPAIRER
[2024-07-26 12:04] VITALS: TEMP 37
[2024-07-26] MEDS: Amitriptyline 100 MG Tablet PO (17:25)
[2024-07-26 23:13] VITALS: BP 109/69; PULSE 74
[2024-07-26] MEDS: MELATONIN 10 MG TABLET PO (23:13)
[2024-07-26 23:22] VITALS: BP 109/69; PULSE 74
[2024-07-26 23:25] VITALS: PULSE 74; RESP 15
[2024-07-27 06:10] LABS: Bedside Glucose 117 mg/dL (74-106)
[2024-07-27] MEDS: Gabapentin 300 MG Capsule PO ×2 (08:22→21:24)
[2024-07-27] MEDS: Cholecalciferol (VIT D3) 25 MCG TABLET (1,000 UNITS) 50 MCG PO (08:22)
[2024-07-27] MEDS: Aspirin E.C. 81 MG Tablet PO ×2 (08:22→17:19)
[2024-07-27 08:23] VITALS: BP 138/64; PULSE 74
[2024-07-27] MEDS: Senna/Docusate Sodium 1 Tablet PO ×2 (08:23→21:26)
[2024-07-27] MEDS: Metoprolol Tartrate 25 MG Tablet 12.5 MG PO ×2 (08:23→21:26)
[2024-07-27] MEDS: Doxycycline 100 MG CAPSULE PO (08:23)
[2024-07-27] MEDS: Lisinopril 2.5 MG Tablet PO (08:24)
[2024-07-27] MEDS: buPROPion (XL) 300 MG TABLET.XL PO (08:24)
[2024-07-27] MEDS: Nystatin Powder 15gm Bottle 1 APPLIC TOPICAL ×2 (08:26→21:25)
[2024-07-27] MEDS: CARBOXYMETHYLCELLULOSE SODIUM 1 DRP DROPS 2 DRP OPHTHALMIC ×2 (08:27→21:25)
[2024-07-27 10:51] VITALS: BP 138/64; PULSE 74; RESP 18; TEMP 36.4; O2SAT 95
--- NOTE | 2024-07-27 12:26 | CASEMGMT ---
Addendum entered by Vicky Levy 07/27/24 13:44: [facility] can accept. - SW spoke with pt to confirm [facility], [facility]. Provided counseling resources. Also educated insurance did issue DC date for 07/30. Pt still electing DC 07/29. Pt expressed appreciation for this worker and therapy, stating she had an overall good experience. Plan: DC home alone 07/29, [facility] PT/OT/GALVEZ/WILLIAM GRIFFIN Original Note: Social Work Therapy notified this worker after pt's session that pt has [facility] w/c transport scheduled for parts picker at 1330 for DC 07/29 and prefers [facility]. WILLIAM placed referral via [facility]. Vicky NAVARROW
[2024-07-27] MEDS: Amitriptyline 100 MG Tablet PO (17:19)
--- NOTE | 2024-07-27 19:51 | PCM.DC.SUM ---
Providers Date of Admission: 07/15/24 Primary Care Physician: Dr. Erick Tracy MD Reason For Visit: NOROVIRUS Diagnosis Discharge Diagnosis (1) Debility: Status: Acute Code(s): R53.81 - Other malaise (2) Abdominal pain: Status: Acute Code(s): R10.9 - Unspecified abdominal pain (3) Norovirus: Status: Acute Code(s): A08.11 - Acute gastroenteropathy due to [place] agent (4) Headache: Status: Acute Code(s): R51.9 - Headache, unspecified (5) Depression: Status: Acute Code(s): F32.A - Depression, unspecified (6) Allergic rhinitis: Status: Acute Code(s): J30.9 - Allergic rhinitis, unspecified (7) Vitamin D deficiency: Status: Acute Code(s): E55.9 - Vitamin D deficiency, unspecified (8) Neuropathic pain: Status: Acute Code(s): M79.2 - Neuralgia and neuritis, unspecified (9) Essential (primary) hypertension: Status: Acute Code(s): I10 - Essential (primary) hypertension (10) BPPV (benign paroxysmal positional vertigo): Status: Acute Code(s): H81.10 - Benign paroxysmal vertigo, unspecified ear (11) Diabetes: Status: Acute Code(s): E11.9 - Type 2 diabetes mellitus without complications Plan 64 year old female with below past medical history of recent cervical/lumbar spine surgery, recent right ankle surgery, hospitalized for diarrhea 2/2 norovirus, admitted to TCU with debility, here for rehabilitation, strengthening, prior to discharge home alone. Debility - PT/OT. Pain - Tylenol 1000mg q6 prn pain (1-10). Bowel - senna/colace 1 tablet bid, Magnesium citrate 300mL daily prn. Adult immunization - Administer pneumonia vaccine, covid vaccine, flu vaccine as appropriate. DVT prophylaxis - Aspirin 81mg bid. Headache - Elavil 100mg qhs, stable chronic terminal operator use, GDR not recommended. Depression - Wellbutrin XL 300mg daily, stable chronic terminal operator use, GDR not recommended. Vitamin D deficiency - D3 50mcg daily. Neuropathic pain - Gabapentin 300mg bid. Hypertension - Metoprolol 12.5mg bid, Lisinopril 2.5mg daily. Medications at Discharge Home Medications amitriptyline 100 mg tablet 100 mg PO QHS mood 07/15/24 aspirin 81 mg tablet,delayed release 81 mg PO BID heart 07/15/24 bupropion HCl 300 mg 24 hr tablet, extended release 300 mg PO DAILY mood 07/15/24 cholecalciferol (vitamin D3) 50 mcg (2,000 unit) capsule 50 mcg PO DAILY supplement 07/15/24 gabapentin 300 mg capsule 300 mg PO BID nerv pain 07/15/24 lisinopril 2.5 mg tablet 2.5 mg PO DAILY blood pressure 07/15/24 metoprolol tartrate 25 mg tablet 12.5 mg PO BID heart 07/15/24 semaglutide 1 mg/dose (4 mg/3 mL) subcutaneous pen injector (Ozempic) 1 mg subcut QWEEK weightloss 07/15/24 acetaminophen 500 mg tablet 1,000 mg (2 x 500 mg) PO Q6H PRN PRN Pain Score 1-10 #0 tabs 07/27/24 doxycycline monohydrate 100 mg capsule 100 mg PO DAILY 18 days #18 caps 07/27/24 melatonin 10 mg sublingual tablet 10 mg PO QHS #0 tabs 07/27/24 Hospital Course Operations None Procedures None Summary of Care Provided Minutes Spent on Discharge: 35 Hospital Course: 64 year old female with below past medical history of recent cervical/lumbar spine surgery, recent right ankle surgery, hospitalized for diarrhea 2/2 norovirus, admitted to TCU with debility, here for rehabilitation, strengthening, prior to discharge home alone. Discharge home alone 07/29/2024, [facility] PT/OT/GALVEZ/SW. Physical Exam Const alert General Appearance: cooperative HEENT normocephalic Eyes PERRL and EOMs intact bilaterally Neck supple, no JVD and no carotid bruits Resp normal respiratory effort, normal air movement and clear to auscultation bilaterally Cardio regular rate and regular rhythm GI normal to inspection, nondistended, normoactive bowel sounds, non-tender and non-distended Extremity normal capillary refill Extremity Narrative: Right lower extremity MARK. General Extremity: Negative for edema Skin no rashes or lesions noted General Skin Exam: no breakdown Psych affect normal Appearance: appropriate Weight / BMI Weight Weight: 99.79 kg Body Mass Index (BMI) 44.6 ABG / Lab / Microbiology Data 07/22/24 06:26 07/22/24 06:26 Laboratory: Laboratory Results - last 24 hr 07/27/24 05:41: POC Glucose 117 H Microbiology: Microbiology 07/27/24 05:28 Nasal Secretion SARS-CoV-2 Antigen (Rapid) - Final 07/20/24 07:04 Nasal Secretion SARS-CoV-2 Antigen (Rapid) - Final D/C Instructions Discharge Diet: No restrictions Discharge Activity: Return to Normal Activity and May Shower Weight Bearing Status: No weight bearing (Right lower extremity.) Call your doctor if you observe: Fever of 101 or Higher, Inability to urinate, Inability to have a bowel movement, Shortness of breath, Dizziness, Fainting spells, Swelling in the ankles, Chest pain and Uncontrolled pain DC O2, CPAP, BIPAP Needs Home O2 Discharge instructions: No Additional Instructions: Discharge home alone 07/29/2024, [facility] PT/OT/GALVEZ/SW. Please Follow Up With: Dr Amado (ortho) When: As scheduled. Meaningful Use Info Meaningful Use Meaningful Use Diagnoses (Choose all that apply): None applicable Ischemic Stroke Statin Dosing Therapy Reference: STATIN DOSE THERAPY REFERENCE: * Patients > 75 years receive moderate or high dose statin therapy. * Patients 75 years or YOUNGER should receive HIGH intensity statin dose unless contraindicated. You will be required to document reason for non-treatment if statin daily dose does not meet guidelines. HIGH DOSE STATIN THERAPY DAILY Atorvastatin > than or = to 40 mg Rosuvastatin > than or = to 20 mg Amlodipine + Atorvastatin > than or = to 2.5/40 mg Ezetimibe + Simvastatin 10/80 mg Simvastatin 80mg Discharge Plan Admission Admit Date/Time: 07/15/24 13:38 Primary Reason for Your Visit: Debility. Attending Provider: Simon Jack Chi Primary Care Provider: Erick Tracy Instructions Additional Instructions / Restrictions: Discharge home alone 07/29/2024, [facility] PT/OT/GALVEZ/SW. Discharge Orders/Prescriptions Prescriptions: New acetaminophen 500 mg Tablet 1,000 mg PO Q6H PRN PRN (Reason: Pain Score 1-10) Qty: 0 0RF doxycycline monohydrate 100 mg Capsule 100 mg PO DAILY 18 Days Qty: 18 0RF melatonin 10 mg Tablet, Sublingual 10 mg PO QHS Qty: 0 0RF Continued amitriptyline 100 mg tablet 100 mg PO QHS aspirin 81 mg tablet,delayed release (DR/EC) 81 mg PO BID bupropion HCl 300 mg tablet extended release 24 hr 300 mg PO DAILY cholecalciferol (vitamin D3) 50 mcg (2,000 unit) capsule 50 mcg PO DAILY gabapentin 300 mg capsule 300 mg PO BID lisinopril 2.5 mg tablet 2.5 mg PO DAILY metoprolol tartrate 25 mg tablet 12.5 mg PO BID Ozempic 1 mg/dose (4 mg/3 mL) pen injector 1 mg subcut QWEEK Referrals / Follow Up: Erick Tracy MD [Primary Care Provider] - Disposition Disposition (needs filled in before D/C Order can be placed): Home Health Service
[2024-07-27] MEDS: MELATONIN 10 MG TABLET PO (21:25)
[2024-07-27 21:26] VITALS: BP 114/62; PULSE 72
[2024-07-27 21:40] VITALS: BP 114/62; PULSE 72
[2024-07-28 06:15] LABS: Bedside Glucose 127 mg/dL (74-106)
[2024-07-28] MEDS: buPROPion (XL) 300 MG TABLET.XL PO (08:50)
[2024-07-28] MEDS: Cholecalciferol (VIT D3) 25 MCG TABLET (1,000 UNITS) 50 MCG PO (08:50)
[2024-07-28] MEDS: Nystatin Powder 15gm Bottle 1 APPLIC TOPICAL ×2 (08:50→23:29)
[2024-07-28] MEDS: Doxycycline 100 MG CAPSULE PO (08:50)
[2024-07-28 08:51] VITALS: PULSE 89
[2024-07-28] MEDS: Aspirin E.C. 81 MG Tablet PO ×2 (08:51→16:40)
[2024-07-28] MEDS: Metoprolol Tartrate 25 MG Tablet 12.5 MG PO ×2 (08:51→23:27)
[2024-07-28] MEDS: Lisinopril 2.5 MG Tablet PO (08:53)
[2024-07-28] MEDS: CARBOXYMETHYLCELLULOSE SODIUM 1 DRP DROPS 2 DRP OPHTHALMIC (08:54)
[2024-07-28 08:55] VITALS: BP 131/68; PULSE 81; RESP 17; TEMP 36.4; O2SAT 96
[2024-07-28] MEDS: Gabapentin 300 MG Capsule PO ×2 (08:58→23:32)
--- NOTE | 2024-07-28 11:52 | MDS.RN ---
Pain assessment for MDS complete.
--- NOTE | 2024-07-28 12:07 | CASEMGMT ---
Social Work SW completed BIMS () and PHQ-9 () for MDS assessment. Pt is looking forward to being at home. SW encouraged pt to make an appt with a new counselor. Vicky Levy MSW [employer] BLOWER
[2024-07-28] MEDS: Amitriptyline 100 MG Tablet PO (16:40)
[2024-07-28 20:00] VITALS: PULSE 76; O2SAT 96
[2024-07-28 23:25] VITALS: BP 120/65; PULSE 77
[2024-07-28 23:27] VITALS: BP 120/65; PULSE 77
[2024-07-28] MEDS: Senna/Docusate Sodium 1 Tablet PO (23:28)
[2024-07-28] MEDS: MELATONIN 10 MG TABLET PO (23:28)
[2024-07-29 04:45] VITALS: PULSE 72; O2SAT 95
[2024-07-29 05:52] LABS: Absolute Lymphocyte Count 1.51 X10^3/uL (0.83-4.51); Absolute Neutrophil Count 2.1 X10^3/uL (2.0-7.7); Basophil# 0.02 X10^3/uL; Basophil% 0.5 % (0-1); Eosinophil# 0.07 X10^3/uL; Eosinophils% 1.7 % (0-5); Hematocrit 34.4 % (37-47); Hemoglobin 11.3 g/dL (12.0-15.0); Lymphocyte # 1.51 X10^3/ul (0.83-4.51); Mean Corp Hgb Conc 32.8 g/dL (32-36); Mean Corpuscular Hgb 28.9 pg (27.0-32.0); Mean Platelet Vol. 9.3 fl (6.2-12.0); Monocyte# 0.36 X10^3/uL; Monocyte% 8.8 % (0-10); NRBC Flagged by Analyzer 0 % (0-5); Neutrophil % 51.5 % (47-70); Platelet Count 164 K/mm3 (150-450); RBC Distribution Width CV 13.2 % (11.6-14.6); RBC Distribution Width SD 42.5 fl (35.1-43.9); Red Blood Count 3.91 M/mm3 (4.2-5.4); White Blood Count 4.1 K/mm3 (4.4-11.0)
[2024-07-29 06:40] LABS: Bedside Glucose 139 mg/dL (74-106)
[2024-07-29 08:00] VITALS: BP 124/62; PULSE 81; RESP 18; TEMP 36.3; O2SAT 95
[2024-07-29 08:07] LABS: Anion Gap 9 (5-15); BUN 16 mg/dL (7-18); BUN/Creat Ratio 18.3 RATIO (10-20); Calcium,Total 9.5 mg/dL (8.5-10.1); Chloride 110 mmol/L (98-107); Creatinine, Serum 0.87 mg/dL (0.55-1.02); EST Glomerular Filtration Rate 69 mL/min (>60); Est Glom Filt Rate - Afr Amer 84 mL/min (>60); Estimated Creatinine Clearance 71.22 ml/min; Glucose 137 mg/dL (74-106); Potassium 4.3 mmol/L (3.5-5.1); Sodium Level 142 mmol/L (136-145)
[2024-07-29 09:11] VITALS: BP 124/62; PULSE 81
[2024-07-29] MEDS: Gabapentin 300 MG Capsule PO (09:11)
[2024-07-29] MEDS: Metoprolol Tartrate 25 MG Tablet 12.5 MG PO (09:11)
[2024-07-29] MEDS: buPROPion (XL) 300 MG TABLET.XL PO (09:11)
[2024-07-29] MEDS: Lisinopril 2.5 MG Tablet PO (09:11)
[2024-07-29] MEDS: Cholecalciferol (VIT D3) 25 MCG TABLET (1,000 UNITS) 50 MCG PO (09:12)
[2024-07-29] MEDS: Doxycycline 100 MG CAPSULE PO (09:12)
[2024-07-29] MEDS: Nystatin Powder 15gm Bottle 1 APPLIC TOPICAL (09:12)
[2024-07-29] MEDS: CARBOXYMETHYLCELLULOSE SODIUM 1 DRP DROPS 2 DRP OPHTHALMIC (09:12)
[2024-07-29] MEDS: Aspirin E.C. 81 MG Tablet PO (09:12)
[2024-07-29 10:59] VITALS: BP 124/62; PULSE 81; RESP 18; TEMP 36.3; O2SAT 95
== END 2024-07-29 13:05 | disposition home health service (06) | DRG 392 ==
PROVIDERS: Admitting Provider Family Medicine Geriatric Medicine; PCP Internal Medicine; Referring Provider Family Medicine Geriatric Medicine; Visit Provider Family Medicine Geriatric Medicine
DX: A08.11 Acute gastroenteropathy due to Norwalk agent (principal); E11.40 Type 2 diabetes mellitus with diabetic neuropathy, unspecified; I10 Essential (primary) hypertension; F32.A Depression, unspecified; J45.909 Unspecified asthma, uncomplicated; E55.9 Vitamin D deficiency, unspecified; H81.10 Benign paroxysmal vertigo, unspecified ear; L71.9 Rosacea, unspecified; Z87.891 Personal history of nicotine dependence; Z79.84 Long term (current) use of oral hypoglycemic drugs; Z79.82 Long term (current) use of aspirin; Z79.899 Other long term (current) drug therapy; G47.00 Insomnia, unspecified
CPT/HCPCS: 36415; 80048; 82306; 82962; 85025; 87811; 97110; 97116; 97162; 97166; 97530; 97535; 97802; A4216